=== PATIENT | female | born 1965 | race Caucasian/White ===

== ENCOUNTER → 2016-11-16 | Outpatient (CLI) | payer BC ==
[~2016-11-16] MED LIST: CETI10TA10 PO; MULT-506 PO
== END | disposition home or self-care (01) ==
LOC: C.PAPS 11:28
PROVIDERS: ATTEND Obstetrics & Gynecology
DX: Z01.419 Encounter for gynecological examination (general) (routine) without abnormal findings (principal)

== ENCOUNTER → 2017-01-30 | Outpatient (CLI) | payer BC ==
--- NOTE | 2017-01-31 15:16 | MAMMOGRAPHY REPORT ---
BILATERAL DIGITAL SCREENING MAMMOGRAM TOMOSYNTHESIS WITH CAD: 01/30/2017 CLINICAL HISTORY: Routine screening. TECHNIQUE: Breast tomosynthesis in addition to standard 2D mammography was performed. Current study was also evaluated with a Computer Aided Detection (CAD) system. COMPARISON: Comparison is made to exams dated: 01/29/2016 mammogram, 01/26/2015 mammogram, 12/30/2013 mammogram, 12/28/2012 mammogram, 12/23/2011 mammogram - [facility], and 04/10/2010 [facility]. BREAST COMPOSITION: The tissue of both breasts is extremely dense, which lowers the sensitivity of m ammography. FINDINGS: There is a partially circumscribed 12 mm mass in the upper outer posterior left breast, wh ich could represent a cyst although additional targeted ultrasound and possible additional mammograph ic views is recommended. A 10 mm nodular asymmetry is seen in the medial anterior right breast on th e CC view which could represent an additional cyst although additional targeted ultrasound and possib le additional mammographic views is recommended. There is expected architectural distortion in the upper outer middle one third of the left breast, at the site of prior surgical excision. A linear scar marker overlies the periareolar left breast. No other suspicious mass, architectural distortion or cluster of microcalcifications is seen. IMPRESSION: ACR BI-RADS CATEGORY 0: INCOMPLETE EVALUATION: NEED ADDITIONAL IMAGING EVALUATION The partially circumscribed 12 mm mass in the left upper outer quadrant and 10 mm nodular asymmetry i n the anterior right breast need additional imaging evaluation. The patient will be called to schedule an appointment. Approximately 10% of breast cancers are not detected with mammography. A negative mammographic report should not delay biopsy if a clinically suggestive mass is present. Jaylin Lee M.D. ay/:01/30/2017 15:32:00 [employer] Superintendent: Joe VINSON(Randy)(M), [facility] letter sent: Addl Imaging 0 BI-RADS Code: ACR BI-RADS Category 0: Incomplete Evaluation: Need Additional Imaging Evaluation
== END | disposition home or self-care (01) ==
LOC: C.MAMM 08:46
PROVIDERS: ATTEND Obstetrics & Gynecology
DX: Z12.31 Encounter for screening mammogram for malignant neoplasm of breast (principal); N63.21 Unspecified lump in the left breast, upper outer quadrant; N64.89 Other specified disorders of breast

== ENCOUNTER → 2017-07-17 | Outpatient (CLI) | payer BC, OTHER ==
--- NOTE | 2017-07-17 11:42 | DIAGNOSTIC IMAGING REPORT ---
R ELBOW MIN 3 VIEWS CLINICAL HISTORY: Right elbow pain. COMPARISON: None FINDINGS: Alignment of the right elbow is anatomic. There is no acute fracture or joint effusion. There is slight cortical irregularity of the lateral epicondyle. IMPRESSION: 1. No acute fracture or joint effusion of the right elbow. 2. Slight cortical irregularity of the lateral epicondyle which is chronic and may reflect sequela of lateral epicondylitis. Electronically signed by: Lewis Brito M.D. 07/17/2017 11:40 AM Dictated Date/Time: 07/17/2017 11:38 AM
== END | disposition home or self-care (01) ==
LOC: C.RDSM 11:20
PROVIDERS: ATTEND Family Medicine
DX: M25.521 Pain in right elbow (principal)

== ENCOUNTER → 2017-11-21 | Outpatient (CLI) | payer OTHER | END | disposition home or self-care (01) | LOC: C.PAPS 17:50 | PROVIDERS: ATTEND Obstetrics & Gynecology | DX: Z01.419 Encounter for gynecological examination (general) (routine) without abnormal findings (principal) ==